=== PATIENT | female | born 1955 | race African-American/Black ===

== ENCOUNTER 2017-02-25 09:42 | Emergency (ER) | payer BC ==
[~2017-02-25] VITALS: Ht 170.2 cm; Wt 90.7 kg
[~2017-02-25 09:42] MED LIST: AMOXICILLIN500 MG ORAL; IBUPROFEN600 MG ORAL; NAPROXEN375 MG PO; NKM; OMEPRAZOLE20 M2 ORAL; ZOFRAN4 MG ORAL
[2017-02-25 10:00] VITALS: BP 119/77
--- NOTE | 2017-02-25 10:18 | Emergency Room Report ---
History of Present Illness General Chief Complaint: Eye Problems Source: Patient Present Illness HPI The patient presents with red eyes since Monday. 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 The crust is yellow color and she has a mild cough. Discomfort in eyes = 5/10. No change in vision. No sore throat. No nasal discharge. No other rashes. The eyes are not painful, but feel scratchy. Allergies: Coded Allergies: ACETAMINOPHEN (Verified Allergy, 06/08/13) HYDROCODONE (Verified Allergy, 06/08/13) Patient History Past Medical History: see triage record Past Surgical History: linnea Social History: Denies: smoking Social History Narrative customer service representative teacher Last Menstrual Period: na Reviewed Nursing Documentation: PMH: Agreed, PSxH: Agreed Nursing Documentation-PMH Past Medical History: No History, Except For Hx Cardiac Problems: Yes - murmur Hx Gastrointestinal Problems: Yes - galbladder removed, kidney stone Hx Cerebrovascular Accident: Yes - 1995 Review of Systems All Other Systems: negative except mentioned in HPI Physical Exam Vital Signs Date Time Temp Pulse Resp B/P (MAP) Pulse Ox O2 Delivery O2 Flow Rate FiO2 02/25/17 09:47 98.1 77 18 119/77 98 Room Air General Appearance: well appearing, no apparent distress Head: normocephalic, atraumatic Eyes: bilateral eye PERRL, bilateral eye Scleral Injection, bilateral eye other - conjunctivae erythematous ENT: hearing grossly normal, normal voice Neck: full range of motion, supple Respiratory: no respiratory distress, speaking full sentences Cardiovascular #2: 2+ radial (L) Gastrointestinal: overweight Musculoskeletal: digits/nails normal, gait/station normal, normal range of motion Neurologic: alert, normal gait, grossly normal Psychiatric: mood/affect normal Skin: no rash Medical Decision Making Diagnostic Impression: Primary Impression: Conjunctivitis Qualified Codes: H10.33 - Unspecified acute conjunctivitis, bilateral ER Course Patient exposed to child with pink eye now with inflammation of eyes. Ddx: viral, bacterial, allergic conjunctivitis. Antibiotics indicated. Also will give napthcon. Patient stable for outpatient observation and treatment. Last Vital Signs Date Time Temp Pulse Resp B/P (MAP) Pulse Ox O2 Delivery O2 Flow Rate FiO2 02/25/17 10:38 98.1 77 18 119/77 98 Room Air Status: improved Disposition: HOME, SELF-CARE Condition: Improved Scripts Naphazoline Hcl/Phenir Mal (NAPHCON-A EYE DROPS) 15 Ml Drops 2 DROP OP Q6HR, #10 ML Prov: Davey Israel M.D. 02/25/17 Sulfacetamide Sodium (BLEPH-10) 5 Ml Drops 2 DROP OP Q6HR for 7 Days, ML Prov: Davey Israel M.D. 02/25/17 Davey Israel M.D. Feb 25, 2017 10:18
[2017-02-25] MEDS ORDERED: BLEPH-105 ML OP (10:21)
[2017-02-25] MEDS ORDERED: NAPHCON-A EYE D15 ML OP (10:21)
[2017-02-25 10:38] VITALS: BP 119/77
== END 2017-02-25 10:38 | disposition home or self-care (01) ==
LOC: EMR 10:30
DX: H10.9 Unspecified conjunctivitis (principal); Z88.6 Allergy status to analgesic agent
CPT/HCPCS: 99284

== ENCOUNTER 2017-10-30 10:54 | Emergency (ER) | payer BC, OTHER ==
[~2017-10-30] VITALS: Ht 170.2 cm; Wt 104.3 kg
[~2017-10-30 10:54] MED LIST changes: +BLEPH-105 ML OP; +NAPHCON-A EYE D15 ML OP
[2017-10-30 11:42] VITALS: BP 132/84
[2017-10-30] MEDS ORDERED: Ketorolac 30mg Inj IM ONE (12:00)
[2017-10-30] MEDS: DiphenhydrAMINE 50mg/ml Inj IM ONE ×2 (12:00→12:23)
--- NOTE | 2017-10-30 12:35 | Emergency Room Report ---
History of Present Illness General Chief Complaint: Headache Source: Patient Present Illness HPI 62 y/o female c/o headache x 1 week. Associated symptoms include headache in the back of her head with mild photophobia and some mild nausea. Patient states that she's had this before and stated that it was because she strains her eyes. She notes that she has some muscle tension in her upper back as well. States that she is not a medication for symptoms. Patient states that she had similar symptoms occurred 2 years ago and at that time she was fully evaluated and later discharged. Patient states that she has a history of his TIA in the 1980s but since then has had no issues. Patient states that she has no numbness, tingling, muscle weakness, chest pain, shortness of breath, vision changes, facial droop, confusion, sore throat, fever, vomiting, abdominal pain, shortness of breath, or rashes. Allergies: Coded Allergies: No Known Allergies (Unverified , 10/30/17) Patient History Past Medical History: see triage record Past Surgical History: none Pertinent Family History: none Last Menstrual Period: na Reviewed Nursing Documentation: PMH: Agreed; PSxH: Agreed Nursing Documentation-PMH Past Medical History: No History, Except For Hx Cardiac Problems: Yes - murmur Hx Gastrointestinal Problems: Yes - galbladder removed, kidney stone Hx Cerebrovascular Accident: Yes Review of Systems All Other Systems: negative except mentioned in HPI Physical Exam Vital Signs Date Time Temp Pulse Resp B/P (MAP) Pulse Ox O2 Delivery O2 Flow Rate FiO2 10/30/17 11:32 98.1 72 18 126/76 97 Room Air 98.1 Sp02 EP Interpretation: reviewed, normal General Appearance: well appearing, no apparent distress, alert, GCS 15, non- toxic, obese Head: normocephalic, atraumatic Eyes: bilateral eye normal inspection, bilateral eye PERRL, bilateral eye EOMI , bilateral eye Fundiscopic - normal ENT: hearing grossly normal, normal pharynx, no angioedema, normal voice Neck: full range of motion, no bony tend, no carotid bruits, supple/symm/no masses Respiratory: chest non-tender, lungs clear, normal breath sounds, speaking full sentences Cardiovascular #1: regular rate, rhythm, no edema Musculoskeletal: back normal, gait/station normal, normal range of motion, non- tender Neurologic: alert, oriented x3, responsive, admissions supervisor III-XII nml as tested, motor strength/tone normal, DTRs symmetric, sensory intact, speech normal, other - pronator drift and romberg negative. Psychiatric: judgement/insight normal, memory normal, mood/affect normal, no suicidal/homicidal ideation Skin: normal color, no rash, warm/dry, well hydrated Lymphatic: no adenopathy Medical Decision Making PA Attestation Dr. Rondon my supervising physician with whom patient management has been discussed with. Diagnostic Impression: Primary Impression: Migraine headache ER Course Pt. presents to the ED c/o headache Ddx considered but are not limited to CVA, drug abuse, meningitis, migraine, tension MAYBERRY, cluster MAYBERRY, trigeminal neuralgia, transverse myelitis, rhabdo, acute renal failure, hypertension emergency, intracranial hemorrhage, concussion , skull fracture, spinal fracture Vital signs: are WNL, pt. is afebrile H&PE: Migraine MAYBERRY. Patient's symptoms improved while in the ED w/o any interventions. Patient has a normal neurological exam and her symptoms are chronic and reocurring. ORDERS: None required at this time. ED INTERVENTIONS: Toradol and benadryl was ordered but the patient stated she felt better prior to medications being given and stated she wanted to go home. DISCHARGE: At this time pt. is stable for d/c to home. Will provide printed patient care instructions, and any necessary prescriptions. Care plan and follow up instructions have been discussed with the patient prior to discharge. Last Vital Signs Date Time Temp Pulse Resp B/P (MAP) Pulse Ox O2 Delivery O2 Flow Rate FiO2 10/30/17 12:27 98.1 10/30/17 11:32 72 18 126/76 97 Room Air Disposition: HOME, SELF-CARE Condition: Stable Scripts Ondansetron Odt* (ZOFRAN ODT*) 8 Mg Tab.rapdis 8 MG ORAL Q8HR PRN for Nausea & Vomiting, #12 TAB Prov: SABRY,TAMEEM P.A. 10/30/17 Naproxen* (NAPROXEN*) 500 Mg Tablet.dr 500 MG ORAL TWICE A DAY for 10 Days, #20 TAB Prov: SABRY,TAMEEM P.A. 10/30/17 Referrals: [facility],REFERRING (PCP) Patient Instructions: Migraine Headache Additional Instructions: Take medication as directed. Follow up with your PCP within the next 2-3 days. Advised patient to go to the ER immediately if you experience a headache that is sudden and becomes severe within a few seconds or minutes, or that could be described as "the worst headache of your life", or if headache is severe and occurs with a fever or stiff neck, occurs with a seizure, personality changes, confusion, or passing out, begins quickly after strenuous exercise or minor injury, or if headache is new and occurs with weakness, numbness, or difficulty seeing. While migraine headaches can sometimes cause these symptoms, you should be evaluated urgently the first time these symptoms appear. Return sooner if sxs worsen or do not improve. PJ GRACIA October 30, 2017 12:35
[2017-10-30 12:53] VITALS: BP 152/91
[2017-10-30] MEDS ORDERED: NAPROXEN500 M1 ORAL (12:55)
[2017-10-30] MEDS ORDERED: ZOFRAN ODT8 MG ORAL (12:55)
== END 2017-10-30 13:05 | disposition home or self-care (01) ==
LOC: EMR 12:28
DX: G43.909 Migraine, unspecified, not intractable, without status migrainosus (principal); Z86.73 Personal history of transient ischemic attack (TIA), and cerebral infarction without residual deficits
CPT/HCPCS: 96372; 99284; J1200; J1885